=== PATIENT | female | born 1935 | race Caucasian/White ===

== ENCOUNTER 2020-10-15 09:29 | Inpatient (IN) | payer MEDICARE, OTHER ==
[~2020-10-15] VITALS: Ht 167.6 cm; Wt 73.0 kg
[~2020-10-15 09:29] MED LIST: CAL MAG ZINC +1 EACH PO; FLOMAX0.4 MG PO; FOLBIC TABLET1 EACH PO; FUROSEMIDE20 MG PO; INFLECTRA100 MG IV; METHOTREXATE2.5 MG PO; METOPROLOL TART50 MG PO; OMEPRAZOLE20 MG PO; PERCOCET 5-3251 EACH PO; POTASSIUM CHLO10 MEQ PO; PROPRANOLOL HCL20 MG PO; PYRIDIUM200 MG PO
[2020-10-15] MEDS ORDERED: SULFASALAZINE500 MG PO (14:23)
[2020-10-15] MEDS ORDERED: AMLODIPINE BESYL5 MG PO (14:25)
[2020-10-15] MEDS ORDERED: CHLORTHALIDONE25 MG PO (14:27)
[2020-10-15] MEDS ORDERED: POTASSIUM CHLO20 ME1 PO (14:27)
[2020-10-15] MEDS ORDERED: CARBIDOPA-LEVO1 EACH PO (14:27)
--- NOTE | 2020-10-15 14:50 | NUR ---
PT ARRIVED FROM ER VIA STRETCHER. PT ALERT AND ORIENTED X4. PT ABLE TO WALK FROM STRETCHER TO RESTROOM AND THEN BACK TO BED WITH ASSISTANCE OF HER CANE THAT SHE USES AT BASELINE. PT DENIES ANY SHORTNESS OF BREATH AT REST AND DOESN'T APPEAR TO HAVE ANY EXERTIONAL SHORTNESS OF BREATH, PT APPEARS TO WEAK BUT STEADY ON HER FEET. PT EATING PART OF LUNCH AND IS FEELING NO NAUSEA AT THIS TIME
[2020-10-15] MEDS ORDERED: NITROSTAT0.4 MG SL (15:23)
[2020-10-15] MEDS ORDERED: FOLIC ACID1 MG PO (15:23)
[2020-10-15] MEDS ORDERED: PROLIA60 MG/1 ML SUB-Q (15:24)
--- NOTE | 2020-10-15 16:15 | NUR ---
THIS RN IN PTS ROOM TO GIVE PT THE REST OF HER MEDS. PT REQUESTING TO HAVE HER IV MOVED TO HER RIGHT ARM INSTEAD OF HER LEFT AC DUE TO THAT BEING HER DOMINANT ARM AND THAT IT INCLUDES. THIS RN STATED THAT SHE WILL TRY AFTER SHE CHECKS ON ALL HER OTHER PTS FIRST
--- NOTE | 2020-10-15 17:00 | NUR ---
THIS RN BACK IN PTS ROOM TO ATTEMPT NEW IV. THIS RN ATTEMPTED TWICE ON PTS RIGHT FOREARM AND MISSED BOTH TIMES. PT THANKED THIS RN FOR ATTEMPTING
--- NOTE | 2020-10-15 17:55 | EKG ---
[facility] [address] [facility] [place], [place] [address] Signed Normal sinus rhythm with sinus arrhythmia Voltage criteria for left ventricular hypertrophy Inferior infarct , age undetermined Abnormal ECG No previous ECGs available Confirmed by MOLLY SALMON MD ([id number]) on 10/15/2020 5:55:09 PM Electronically Signed By: MOLLY SALMON MD 10/15/20 1755 PATIENT NAME: YAAKOV LOGAN Electrocardiogram DATE OF : 35 PHYSICIAN: MOLLY SALMON MD REPORT #: [id number] REPORT IS CONFIDENTIAL AND NOT TO BE RELEASED WITHOUT AUTHORIZATION
--- NOTE | 2020-10-15 19:44 | NUR ---
PATIENT RESTING QUIETLY IN BED IN ROOM, CALL LIGHT IN REACH.
--- NOTE | 2020-10-15 20:33 | NUR ---
PATIENT HAS HER SELF IN BED AND IS FEELING NO SHORTNESS OF BREATH, JUST USED THE BATHROOM INDEPENDANTLY WITH THE CAN. PATIENT TOOK PM MEDS AND HAD NO OTHER NEEDS. CALL LIGHT IN REACH AND BED POSITIONED TO POSITION OF COMFORT. CALL LIGHT IS IN REACH.
--- NOTE | 2020-10-15 22:30 | NUR ---
PATIENT RESTING QUIETLY IN HER RIGHT SIDE, MOVING AROUND A BIT. NO NEEDS AT THIS TIME. CALL LIGHT IN REACH.
--- NOTE | 2020-10-15 23:20 | NUR ---
PATIENT CONTINUES RESTING ON HER LEFT SIDE, RESPIRATIONS ARE REGULAR AND EVEN, EYES CLOSED AND CALL LIGHT IN REACH.
--- NOTE | 2020-10-16 01:30 | NUR ---
PATIENT IS CURRENTLY AWAKE AND READJUSTING HERSELF IN BED. PATIENT SAYS SHE IS DOING OK, AND NEEDS NOTHING AT THIS TIME CALL LIGHT IS IN REACH.
--- NOTE | 2020-10-16 03:23 | NUR ---
PATIENT UP TO THE BATHROOM INDEPENDANT WITH CANE TO VOID AND BACK TO BED. VOIDED 850MLS. TWO WARM BLANKETS GIVEN, VS STABLE, PATIENT GOING TO TRY AND GO TO BACK TO SLEEP. CALL LIGHT IN REACH.
--- NOTE | 2020-10-16 07:00 | NUR ---
THIS RN RECEIVED REPORT FROM HUMPHREY GRIFFITH IN THE HALLWAY TO PTS ISOLATION STATUS. PT APPEARS TO BE DOING WELL. PT ON TELE AND ON CPOX
--- NOTE | 2020-10-16 10:00 | NUR ---
THIS RN FLUSHED PTS 20G IV IN THE LEFT AC. IV FLUSHED WELL WITH NO PROBLEMS, NO BLOOD RETURN NOTED
--- NOTE | 2020-10-16 10:01 | NUR ---
THIS RN IN PTS ROOM TO GIVE PT HER MORNING MEDS AND DO MORNING ASSESSMENT. PT SITTING UP TO CHAIR AND HAS NO COMPLAINTS THIS AM. PT AMBULATED TO RESTROOM AND IS STEADY ON HER FEET. PT ON TELE AND CPOX.
--- NOTE | 2020-10-16 10:30 | NUR ---
THIS RN BACK IN ROOM DUE TO PT WAVING AT THIS RN ABOUT HER IV. WHEN THIS RN ENTERED ROOM THIS RN NOTICED THAT PT HAD A GOLF BALL SIZE INFILTRATED SITE HER LEFT AC IV SITE. THIS RN STOPPED THE INFUSION AND REMOVED THE IV AND PLACED A PRESURE DRESSING AT THE SITE. THIS RN THEN NOTIFED CHARGE NURSE BARBRA AND ABOUT THE INCIDENT
--- NOTE | 2020-10-16 12:45 | NUR ---
THIS RN IN PTS ROOM TO ATTEMPT ANOTHER IV. THIS RN UNABLE AFTER TWO ATTEMPTS ONE ON THE RIGHT FOREARM AND ONE ON THE LEFT FOREARM. PTS LEFT IV SITE IN HER AC APPEARS TO HAVE GONE DOWN IN THE SWELLING AND NO REDNESS NOTED AT THE SITE
--- NOTE | 2020-10-16 15:30 | NUR ---
THIS RN IN PTS ROOM TO GIVE HER THE AFTERNOON MEDS. THIS RN ALSO ABLE TO RESTART PTS REMDESIVIR AT THIS TIME. PT VERY HAPPY ABOUT HER NEW IV.THIS RN FLUSHED PTS IV WITH 10ML OF NS, IV FLUSHED WELL AND GOOD BLOOD RETURN PRESENT AT THIS TIME
--- NOTE | 2020-10-16 16:00 | NUR ---
THIS RN BACK IN PTS ROOM TO GIVE PT HER EVENING POTASSIUM PILLS AND STOP PTS REMDESIVIR. PT TOLERATED WELL AND LOOKS GOOD
--- NOTE | 2020-10-16 17:40 | NUR ---
THIS RN IN PTS ROOM TO PROVIDE PT WITH DINNER. THIS RN MADE SURE THAT PT WAS GETTING WARM FOOD DUE TO THE LAST TWO MEALS SHE RECIEVED WERE COLD. PT SITTING UP IN BED ANS HAS NO FURTHER REQUESTS AT THIS TIME
--- NOTE | 2020-10-16 18:18 | NUR ---
PATIENT SITTING UP IN BED TALKING ON THE PHONE. PATIENT SAID SHE HASN'T HAD WASHCLOTH SINCE SHE GOT HERE, GAVE HER A PILE TO KEEP BY HER SINK IN THE BATHROOM AND THIS MORNING MADE SURE SHE HAD AM CARE AND ORAL CARE SUPPLIES AVALIABLE AND SHE DID. CALL LIGHT IN REACH. NO FURTHER NEEDS AT THIS TIME.
--- NOTE | 2020-10-16 19:17 | NUR ---
PATIENT RESTING QUIETLY IN BED, GETTING REPORT FROM NACHO ADORNO, NO NEEDS AT THIS TIME. CALL LIGHT IN REACH.
--- NOTE | 2020-10-16 21:53 | NUR ---
PATIENT WAS GIVEN TO WARM BLANKETS EARLIER WITH FRESH GLASS OF ICE WATER WELL. PATIENT IS CURRETLY RESTING QUIETLY ON HER LEFT SIDE. EYES CLOSED, RESPIRATIONS REGULAR AND EVEN, CALL LIGHT IN REACH.
--- NOTE | 2020-10-17 00:32 | NUR ---
PATIENT RESTING QUIETLY ON HER RIGHT SIDE, EYES CLOSED, RESPIRATIONS REGULAR AND EVEN, AND CALL LIGHT IN REACH.
--- NOTE | 2020-10-17 02:03 | NUR ---
PATIENT JUST UP TO THE BATHROOM INDEPENDANTLY WITH HER CANE TO PEE, AND IS NOW BACK IN BED. NO CURRENT NEEDS, CALL LIGHT IS IN REACH.
--- NOTE | 2020-10-17 04:00 | NUR ---
PATIENT RESTING QUIETLY ON HER RIGHT SIDE, EYES CLOSED, RESPIRATIONS REGULAR AND EVEN, CALL LIGHT IN REACH.
--- NOTE | 2020-10-17 06:41 | NUR ---
PATIENT WAS ABLE TO SLEEP WELL MOST OF THE NIGHT WITH HER MELATONIN SHE WAS GIVEN. PATIENT HAS BEEN UP INDEPENDANT WITH HER CANE TO USE THE BATHROOM. IV IS PATENT AND FLUSHES AND DRAWS WELL. LABS DRAWN FOR AM, AND PATIENT GOING TO TRY AND GO BACK TO SLEEP. CALL LIGHT IN REACH.
--- NOTE | 2020-10-17 09:35 | NUR ---
Patient sitting up in bed. AM medications given as prescribed. Takes without difficulty. Denies pain this AM. States she is feeling better today. Assessment completed. Denies other needs at this time. Call light in reach, bed rails up X2.
--- NOTE | 2020-10-17 11:10 | NUR ---
Dr. Paul in to assess patient. Informed of IV site in ankle. Up in bathroom at this time.
[2020-10-17] MEDS ORDERED: POTASSIUM CHLO20 ME1 PO (12:15)
--- NOTE | 2020-10-17 13:28 | NUR ---
DC instructions given to patient. Verbalizes understanding. Denies needs at this time. Call light in reach.
== END 2020-10-17 13:55 | disposition home or self-care (01) | DRG 178 ==
LOC: ED 09:29 → MS 09:31
PROVIDERS: ADMIT Internal Medicine; ATTEND Internal Medicine
PROC: XW033E5 Introduction of Remdesivir Anti-infective into Peripheral Vein, Percutaneous Approach, New Technology Group 5 (ICD-10-PCS; principal; 2020-10-15)
PROC: XW033E5 Introduction of Remdesivir Anti-infective into Peripheral Vein, Percutaneous Approach, New Technology Group 5 (ICD-10-PCS; 2020-10-16)
PROC: XW033E5 Introduction of Remdesivir Anti-infective into Peripheral Vein, Percutaneous Approach, New Technology Group 5 (ICD-10-PCS; 2020-10-17)
DX: U07.1 COVID-19 (principal); A08.39 Other viral enteritis; N17.9 Acute kidney failure, unspecified; N18.4 Chronic kidney disease, stage 4 (severe); M06.9 Rheumatoid arthritis, unspecified; E87.6 Hypokalemia; I12.9 Hypertensive chronic kidney disease with stage 1 through stage 4 chronic kidney disease, or unspecified chronic kidney disease; N30.20 Other chronic cystitis without hematuria; K21.00 Gastro-esophageal reflux disease with esophagitis, without bleeding; M19.90 Unspecified osteoarthritis, unspecified site; M54.16 Radiculopathy, lumbar region; M81.0 Age-related osteoporosis without current pathological fracture; G44.209 Tension-type headache, unspecified, not intractable; Z79.899 Other long term (current) drug therapy; Z88.1 Allergy status to other antibiotic agents; Z87.891 Personal history of nicotine dependence
CPT/HCPCS: 36600; 71045; 80048; 80053; 82803; 83605; 83615; 83735; 83880; 84484; 85025; 85379; 93005; 93010; 96374; 99285-25; J1100; J1650; J7040; J7050; J8540

== ENCOUNTER 2023-09-13 09:56 | Emergency (ER) | payer MEDICARE, OTHER ==
[~2023-09-13] VITALS: Ht 307.3 cm; Wt 58.7 kg
[~2023-09-13 09:56] MED LIST changes: +AMLODIPINE BESYL5 MG PO; +CARBIDOPA-LEVO1 EACH PO; +CHLORTHALIDONE25 MG PO; +FOLIC ACID1 MG PO; +NITROSTAT0.4 MG SL; +POTASSIUM CHLO20 ME1 PO; +PROLIA60 MG/1 ML SUB-Q; +SULFASALAZINE500 MG PO
[2023-09-13 11:21] LABS: BASOPHILS 0.6 % (0-2); EOSINOPHILS 2.8 % (0-6); HEMATOCRIT 21.6 % (35.0-50.0); LYMPHOCYTES 15.4 % (24-44); MCH 32.5 (27-36); MCHC 32.1 g/dl (30-36); MCV 101.1 fl (81-99); MONOCYTES 12.8 % (0-12); NEUTROPHILS 68.4 % (39-80); PLATELET COUNT 250 K/uL (140-440); RBC 2.14 M/ul (4.3-5.7); RDW 16.2 (10.5-15.0)
[2023-09-13 11:36] LABS: ALBUMIN 2.9 g/dL (3.4-5.0); ALBUMIN/GLOBULIN RATIO 0.69 (1.1-2.4); BILIRUBIN, TOTAL 0.2 ng/dL (0.2-1.0); BUN/CREATININE RATIO 12.66 (6.0-28.6); CALCIUM 8.6 mg/dL (8.5-10.1); CREATININE, SERUM 3.87 mg/dL (0.55-1.02); PROTEIN, TOTAL 7.1 g/dL (6.4-8.2)
[2023-09-13 11:57] LABS: ABO A; ANTIBODY SCREEN NEGATIVE; RH NEGATIVE
[2023-09-13 12:32] VITALS: BP 185/93
[2023-09-13 13:28] LABS: IS CROSSMATCH COMPATIBLE
== END 2023-09-13 12:33 | disposition home or self-care (01) ==
LOC: ED 09:56
PROVIDERS: Emergency Medicine
DX: I12.9 Hypertensive chronic kidney disease with stage 1 through stage 4 chronic kidney disease, or unspecified chronic kidney disease (principal); N18.9 Chronic kidney disease, unspecified; D63.1 Anemia in chronic kidney disease; Z88.1 Allergy status to other antibiotic agents; Z79.899 Other long term (current) drug therapy; Z87.891 Personal history of nicotine dependence
CPT/HCPCS: 36415; 80053; 85025; 86850; 86900; 86901; 86922; 99284; P9016

== ENCOUNTER 2024-07-27 18:48 | Emergency (ER) | payer MEDICARE, OTHER ==
[~2024-07-27] VITALS: Ht 152.4 cm; Wt 53.3 kg
[2024-07-27] MEDS ORDERED: NORVASC10 MG PO (19:10)
[2024-07-27] MEDS ORDERED: MIRTAZAPINE15 MG PO (19:11)
[2024-07-27] MEDS ORDERED: SULFASALAZINE500 MG PO (19:11)
[2024-07-27 19:38] LABS: BASOPHILS 0.5 % (0-2); EOSINOPHILS 0.8 % (0-6); HEMATOCRIT 23.9 % (35.0-50.0); HEMOGLOBIN 7.8 g/dL (12.0-18.0); LYMPHOCYTES 19.1 % (24-44); MCH 32.6 (27-36); MCHC 32.5 g/dl (30-36); MCV 100.3 fl (81-99); MONOCYTES 11.7 % (0-12); NEUTROPHILS 67.9 % (39-80); PLATELET COUNT 192 K/uL (140-440); RBC 2.38 M/ul (4.3-5.7); RDW 17.3 (10.5-15.0)
[2024-07-27 19:55] LABS: ALBUMIN 2.5 g/dL (3.4-5.0); ALBUMIN/GLOBULIN RATIO 0.56 (1.1-2.4); ANION GAP 20.2 (7-21); BILIRUBIN, TOTAL 0.4 ng/dL (0.2-1.0); BUN/CREATININE RATIO 10.96 (6.0-28.6); CALCIUM 8.5 mg/dL (8.5-10.1); CREATININE, SERUM 5.93 mg/dL (0.55-1.02); MAGNESIUM 1.9 mg/dL (1.8-2.4); PHOSPHORUS, INORGANIC 5.6 mg/dL (2.5-4.9); POTASSIUM 5.2 mmol/L (3.5-5.1)
[2024-07-27 20:23] LABS: INFLUENZA B NAA NEGATIVE (NEGATIVE); RESPIRATORY SYNCYTIAL VIR NAA NEGATIVE (NEGATIVE)
[2024-07-27 20:57] LABS: ABO A; ANTIBODY SCREEN NEGATIVE; RH NEGATIVE
[2024-07-27 21:50] LABS: BILIRUBIN, URINE NEGATIVE (negative); BLOOD/HGB, URINE TRACE-L (Negative); KETONE, URINE NEGATIVE (Negative); LEUK ESTERASE, URINE SMALL (negative); NITRITE, URINE NEGATIVE (negative)
[2024-07-27 22:03] LABS: WHITE BLOOD CELLS, URINE 41-50 /HPF (0-5)
[2024-07-27 22:04] LABS: BACTERIA, URINE 2+ /hpf (negative); CASTS, URINE NONE SEEN \\lpf; COLLECTION TYPE, URINE CLEAN CATCH; CRYSTALS, URINE NONE SEEN (0-1+); EPITHELIAL CELLS, URINE SQUAMOUS 1+ /lpf (0-1+); REFLEX CULTURE, URINE Yes (No)
[2024-07-27] MEDS ORDERED: hydrALAZINE HCL 20 MG/ML VIAL IV ONE (22:15)
[2024-07-27] MEDS ORDERED: SODIUM POLYSTYRENE SULFONATE 15 GM/60 ML UDC PO ONE (22:15)
[2024-07-27 22:46] LABS: IS CROSSMATCH COMPATIBLE
[2024-07-27] MEDS ORDERED: CEFTRIAXONE/SODIUM CHLORIDE 1 GM/100 ML PIGGYBACK IV ONE (23:45)
[2024-07-27] MEDS ORDERED: diphenhydrAMINE HCL 50 MG/ML VIAL IV ONE (23:45)
[2024-07-27] MEDS ORDERED: LORazepam 2 MG/ML VIAL IV ONE (23:45)
[2024-07-28 00:20] LABS: ANION GAP 20.1 (7-21); BUN/CREATININE RATIO 11.44 (6.0-28.6); CALCIUM 8.7 mg/dL (8.5-10.1); CREATININE, SERUM 5.94 mg/dL (0.55-1.02); POTASSIUM 4.1 mmol/L (3.5-5.1)
[2024-07-28] MEDS ORDERED: LORazepam 2 MG/ML VIAL IV ONE (01:00)
[2024-07-28] MEDS ORDERED: DEXAMETHASONE SOD PHOS 4 MG/ML VIAL IV ONE (01:00)
[2024-07-28] MEDS ORDERED: K-TAB ER20 MEQ PO (02:16)
[2024-07-28] MEDS ORDERED: CEFDINIR300 MG PO (03:47)
[2024-07-28 03:53] VITALS: BP 171/92
== END 2024-07-28 03:59 | disposition home or self-care (01) ==
LOC: ED 18:48
PROVIDERS: Family Medicine
DX: D64.9 Anemia, unspecified (principal); I12.0 Hypertensive chronic kidney disease with stage 5 chronic kidney disease or end stage renal disease; N18.5 Chronic kidney disease, stage 5; N39.0 Urinary tract infection, site not specified; Z87.891 Personal history of nicotine dependence; Z88.1 Allergy status to other antibiotic agents; Z79.899 Other long term (current) drug therapy; Z11.52 Encounter for screening for COVID-19
CPT/HCPCS: 36415; 36430; 80048; 80053; 81001; 83735; 84100; 85025; 86850; 86900; 86901; 86922; 87088; 87502; 96365; 96375; 99283-25; J0360; J0696; J1200; J2060; P9016; U0002

== ENCOUNTER 2024-09-08 15:08 | Inpatient (IN) | payer MEDICARE, OTHER ==
[~2024-09-08] VITALS: Ht 152.4 cm; Wt 58.1 kg
[~2024-09-08 15:08] MED LIST changes: +CEFDINIR300 MG PO; +K-TAB ER20 MEQ PO; +MIRTAZAPINE15 MG PO; +NORVASC10 MG PO
[2024-09-08 16:03] LABS: HEMATOCRIT 28.1 % (35.0-50.0); HEMOGLOBIN 8.9 g/dL (12.0-18.0); MCH 33.7 (27-36); MCHC 31.8 g/dl (30-36); MCV 105.8 fl (81-99); PLATELET COUNT 240 K/uL (140-440); RBC 2.66 M/ul (4.3-5.7); RDW 17.4 (10.5-15.0)
[2024-09-08 16:14] LABS: ALBUMIN 2.8 g/dL (3.4-5.0); ALBUMIN/GLOBULIN RATIO 0.6 (1.1-2.4); ANION GAP 24.4 (7-21); BILIRUBIN, TOTAL 0.6 ng/dL (0.2-1.0); BUN/CREATININE RATIO 12.21 (6.0-28.6); CALCIUM 7.4 mg/dL (8.5-10.1); CREATININE, SERUM 5.73 mg/dL (0.55-1.02); POTASSIUM 4.4 mmol/L (3.5-5.1); PROTEIN, TOTAL 7.5 g/dL (6.4-8.2)
[2024-09-08 16:20] LABS: BASOPHILS, MANUAL DIFF 1; LYMPHOCYTES, MANUAL DIFF 6; MONOCYTES, MANUAL DIFF 7; NEUTROPHILS, MANUAL DIFF 86
[2024-09-08 16:31] LABS: BILIRUBIN, URINE NEGATIVE (negative); BLOOD/HGB, URINE TRACE-I (Negative); KETONE, URINE NEGATIVE (Negative); LEUK ESTERASE, URINE NEGATIVE (negative); NITRITE, URINE NEGATIVE (negative)
[2024-09-08 16:40] LABS: BACTERIA, URINE NONE SEEN /hpf (negative); CASTS, URINE NEGATIVE \\lpf; COLLECTION TYPE, URINE CLEAN CATCH; CRYSTALS, URINE NONE SEEN (0-1+); EPITHELIAL CELLS, URINE SQUAMOUS 1+ /lpf (0-1+); REFLEX CULTURE, URINE No (No)
[2024-09-08] MEDS ORDERED: SODIUM CHLORIDE 0.9% 1,000 ML IV PRN (17:00)
[2024-09-08 17:21] LABS: MAGNESIUM 1.9 mg/dL (1.8-2.4)
[2024-09-08 17:49] LABS: INFLUENZA B NAA NEGATIVE (NEGATIVE); RESPIRATORY SYNCYTIAL VIR NAA NEGATIVE (NEGATIVE)
[2024-09-08] MEDS ORDERED: ACETAMINOPHEN 325 MG TAB PO PRN (19:30)
[2024-09-08] MEDS ORDERED: ondansetron HCL 4 MG/2 ML VIAL IV PRN (19:30)
[2024-09-08] MEDS ORDERED: GLUCAGON,HUMAN RECOMBINANT 1 MG/ML VIAL SUB-Q PRN (19:30)
[2024-09-08] MEDS ORDERED: DEXTROSE 5% 1,000 ML IV PRN (19:30)
[2024-09-08] MEDS ORDERED: DEXTROSE 50% 50 ML SYR IV PRN ×2 (19:30)
[2024-09-08] MEDS ORDERED: IBLOOD GLUCOSE TEST STRIP 1 EA TEST XX PRN (19:30)
[2024-09-08] MEDS ORDERED: bisacodyL 10 MG SUPP PR PRN (19:30)
[2024-09-08] MEDS ORDERED: PROCHLORPERAZINE EDISYLATE 10 MG/2 ML VIAL IV PRN (19:30)
[2024-09-08] MEDS ORDERED: Insulin Regular, Human 100 UNIT/ML ML SUB-Q SCH (20:00)
[2024-09-08] MEDS ORDERED: IBLOOD GLUCOSE TEST STRIP 1 EA TEST VI SCH (20:00)
[2024-09-08] MEDS ORDERED: LABETALOL HCL 100 MG/20 ML MDV IV PRN (20:00)
[2024-09-08] MEDS ORDERED: MELATONIN 3 MG TAB PO PRN (21:00)
[2024-09-08 21:09] VITALS: BP 171/91
[2024-09-08] MEDS ORDERED: METOPROLOL TART25 MG PO (22:33)
[2024-09-08] MEDS ORDERED: FUROSEMIDE80 MG PO (22:34)
[2024-09-08] MEDS ORDERED: FLONASE SENSIM5.9 ML NAS (22:35)
[2024-09-08] MEDS ORDERED: VITAMIN B12500 MCG PO (22:36)
[2024-09-08] MEDS ORDERED: SODIUM BICARBO650 MG PO (22:37)
[2024-09-08] MEDS ORDERED: CALPHRON667 MG PO (22:39)
[2024-09-08] MEDS ORDERED: REMDESIVIR 200 MG in SODIUM CHLORIDE 0.9% 210 ML IV ONE (23:00)
[2024-09-08] MEDS ORDERED: SODIUM CHLORIDE 0.9% 250 ML IV ONE (23:19)
[2024-09-09] VITALS (11 sets, daily range): BP systolic 148–196; BP diastolic 68–93
[2024-09-09 05:46] LABS: HEMATOCRIT 27.3 % (35.0-50.0); HEMOGLOBIN 8.6 g/dL (12.0-18.0); MCH 33.4 (27-36); MCHC 31.6 g/dl (30-36); MCV 105.6 fl (81-99); PLATELET COUNT 219 K/uL (140-440); RBC 2.59 M/ul (4.3-5.7); RDW 17.2 (10.5-15.0)
[2024-09-09 05:58] LABS: LYMPHOCYTES, MANUAL DIFF 9; MONOCYTES, MANUAL DIFF 4; NEUTROPHILS, MANUAL DIFF 87
[2024-09-09 06:16] LABS: ANION GAP 25.4 (7-21); BUN/CREATININE RATIO 12.63 (6.0-28.6); CALCIUM 7.8 mg/dL (8.5-10.1); CREATININE, SERUM 5.7 mg/dL (0.55-1.02); POTASSIUM 3.4 mmol/L (3.5-5.1); TSH, 3RD GENERATION 5.722 uIU/mL (0.358-3.740)
[2024-09-09] MEDS ORDERED: POTASSIUM BICARBONATE/CIT AC 20 MEQ TABEF PO ONE (08:15)
[2024-09-09] MEDS ORDERED: sulfaSALAzine 500 MG TAB PO SCH (09:00)
[2024-09-09] MEDS ORDERED: FLUTICASONE PRO16 GM NAS (09:33)
[2024-09-09] MEDS ORDERED: POTASSIUM CITR15 MEQ PO (09:35)
[2024-09-09] MEDS ORDERED: PHARMACY RENAL DOSE ADJUSTMENT 1 DOSE MISC PO SCH (12:00)
[2024-09-09] MEDS ORDERED: BENZONATATE 100 MG CAP PO PRN (13:00)
[2024-09-09] MEDS ORDERED: GUAIFENESIN/DEXTROMETHORPHAN 5 ML SYRUP PO PRN (13:00)
[2024-09-09] MEDS ORDERED: VITAMIN D350 MCG PO (14:01)
[2024-09-09] MEDS ORDERED: TUMS200 MG PO (14:16)
[2024-09-09] MEDS ORDERED: ASPIRIN REGIMEN81 MG PO (14:17)
[2024-09-09] MEDS ORDERED: ARTHRITIS PAIN650 M2 PO (14:36)
[2024-09-09] MEDS ORDERED: MILK OF MA400 MG/5 M PO (14:37)
[2024-09-09] MEDS ORDERED: LOPERAMIDE2 M1 PO (14:38)
[2024-09-09] MEDS ORDERED: AMLODIPINE BESYLATE 10 MG TAB PO SCH (15:15)
[2024-09-09] MEDS ORDERED: LABETALOL HCL 100 MG/20 ML MDV IV PRN (15:30)
[2024-09-09] MEDS ORDERED: METOPROLOL TARTRATE 25 MG TAB PO SCH (21:00)
[2024-09-10] VITALS (10 sets, daily range): BP systolic 156–188; BP diastolic 75–87
[2024-09-10 05:28] LABS: FOLATE,SERUM 3.7 ng/mL (>=5.9)
[2024-09-10 05:55] LABS: HEMATOCRIT 26.3 % (35.0-50.0); HEMOGLOBIN 8.3 g/dL (12.0-18.0); MCH 33.3 (27-36); MCHC 31.4 g/dl (30-36); MCV 105.9 fl (81-99); PLATELET COUNT 206 K/uL (140-440); RBC 2.49 M/ul (4.3-5.7); RDW 18.3 (10.5-15.0)
[2024-09-10] MEDS ORDERED: FUROSEMIDE 40 MG TAB PO SCH (06:00)
[2024-09-10 06:13] LABS: ALBUMIN 2.2 g/dL (3.4-5.0); ALBUMIN/GLOBULIN RATIO 0.5 (1.1-2.4); ANION GAP 23.9 (7-21); BILIRUBIN, TOTAL 0.5 ng/dL (0.2-1.0); BUN/CREATININE RATIO 13.66 (6.0-28.6); CALCIUM 8.1 mg/dL (8.5-10.1); MAGNESIUM 2.1 mg/dL (1.8-2.4); POTASSIUM 3.9 mmol/L (3.5-5.1); PROTEIN, TOTAL 6.6 g/dL (6.4-8.2)
[2024-09-10 06:16] LABS: EOSINOPHILS, MANUAL DIFF 1; LYMPHOCYTES, MANUAL DIFF 7; MONOCYTES, MANUAL DIFF 11; NEUTROPHILS, MANUAL DIFF 81
[2024-09-10] MEDS ORDERED: LEVOTHYROXINE SODIUM 50 MCG TAB PO SCH (07:00)
[2024-09-10] MEDS ORDERED: FOLIC ACID 1 MG TAB PO SCH (08:26)
[2024-09-11 02:00] VITALS: BP 172/84
[2024-09-11 02:01] VITALS: BP 174/79
[2024-09-11 02:02] VITALS: BP 174/79
[2024-09-11 05:21] VITALS: BP 177/78
[2024-09-11 08:52] VITALS: BP 139/59
[2024-09-11 08:53] VITALS: BP 139/59
[2024-09-11] MEDS ORDERED: METOPROLOL TARTRATE 50 MG TAB PO SCH (09:00)
--- NOTE | 2024-09-11 21:31 | EKG ---
[facility] [address] [facility] [address] [facility] [place] [address] Signed Normal sinus rhythm Nonspecific ST and T wave abnormality Prolonged QT Abnormal ECG When compared with ECG of 15-OCT-2020 11:28, Criteria for Inferior infarct are no longer present Nonspecific T wave abnormality has replaced inverted T waves in Inferior leads Nonspecific T wave abnormality now evident in Lateral leads Confirmed by Alysa Diop MD ([id number]) on 09/11/2024 9:31:36 PM Electronically Signed By: ALYSA DIOP DO 09/11/[id number] PATIENT NAME: YAAKOV LOGAN Electrocardiogram DATE OF : 35 PHYSICIAN: ALYSA DIOP DO REPORT #: [id number] REPORT IS CONFIDENTIAL AND NOT TO BE RELEASED WITHOUT AUTHORIZATION
[2024-09-12 00:18] LABS: IRON BINDING CAPACITY TOTAL 138 ug/dL (240-450); IRON,SERUM OR PLASMA 37 ug/dL (28-170); TRANSFERRIN SATURATION 27 %sat (20-50)
== END 2024-09-11 13:45 | DRG 177 ==
LOC: ED 15:08 → MS 19:43
PROVIDERS: Emergency Medicine; ADMIT Student in an Organized Health Care Education/Training Program; ATTEND Student in an Organized Health Care Education/Training Program
PROC: XW033E5 Introduction of Remdesivir Anti-infective into Peripheral Vein, Percutaneous Approach, New Technology Group 5 (ICD-10-PCS; principal; 2024-09-08)
DX: U07.1 COVID-19 (principal); N18.6 End stage renal disease; I67.4 Hypertensive encephalopathy; I12.0 Hypertensive chronic kidney disease with stage 5 chronic kidney disease or end stage renal disease; Z87.891 Personal history of nicotine dependence; M06.9 Rheumatoid arthritis, unspecified; F03.A0 Unspecified dementia, mild, without behavioral disturbance, psychotic disturbance, mood disturbance, and anxiety; Z66 Do not resuscitate; I35.0 Nonrheumatic aortic (valve) stenosis; E78.00 Pure hypercholesterolemia, unspecified; M19.90 Unspecified osteoarthritis, unspecified site; D63.1 Anemia in chronic kidney disease; Z88.1 Allergy status to other antibiotic agents; Z87.442 Personal history of urinary calculi; Z98.890 Other specified postprocedural states; Z90.89 Acquired absence of other organs; Z98.1 Arthrodesis status; Z79.899 Other long term (current) drug therapy
CPT/HCPCS: 36415; 70450; 70551; 71045; 73120; 80048; 80053; 80061; 81001; 82607; 82746; 83036; 83550; 83735; 83880; 84439; 84443; 84484; 85025; 87502; 92610; 93005; 93010; 93306; 94667; 94762; 97112; 97162; 97166; 97530; 97535; A9270; J0248; J7050; U0002

== ENCOUNTER 2024-10-20 09:35 | Inpatient (IN) | payer MEDICARE, OTHER ==
[~2024-10-20] VITALS: Ht 152.4 cm; Wt 68.8 kg
[~2024-10-20 09:35] MED LIST changes: +ARTHRITIS PAIN650 M2 PO; +ASPIRIN REGIMEN81 MG PO; +CALPHRON667 MG PO; +FLONASE SENSIM5.9 ML NAS; +FLUTICASONE PRO16 GM NAS; +FUROSEMIDE80 MG PO; +LOPERAMIDE2 M1 PO; +METOPROLOL TART25 MG PO; +MILK OF MA400 MG/5 M PO; +POTASSIUM CITR15 MEQ PO; +SODIUM BICARBO650 MG PO; +TUMS200 MG PO; +VITAMIN B12500 MCG PO; +VITAMIN D350 MCG PO
--- OUTSIDE RECORDS SUMMARY | 2024-10-20 09:43 | XMS ---
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 [place] VISIT COUNT (12 MO.) [address] Afshan Thompson (Chidi Murillo) TOTAL 5 NOTE: Visits indicate total known visits. ED/UCC VISIT TRACKING (12 MO.) 10/20/2024 09:35 [facility] [place] TYPE: Emergency COMPLAINT: - SHORTNESS OF BREATH 09/25/2024 10:09 [facility] Chidi [place]A ([place]) TYPE: Emergency DIAGNOSES: - Dysarthria and anarthria - Encephalopathy, unspecified - Other disorders of phosphorus metabolism - Urinary tract infection, site not specified - Weakness 09/24/2024 18:01 [facility] Chidi [place] ([place]) TYPE: Emergency DIAGNOSES: - Hematuria, unspecified - Other disorders of phosphorus metabolism - Urinary tract infection, site not specified - Abnormal Lab 09/08/2024 15:08 [facility] TYPE: Emergency COMPLAINT: - ALTERED LOC 07/27/2024 18:49 [facility] [place] TYPE: Emergency COMPLAINT: - WEAKNESS DIAGNOSES: - Allergy status to other antibiotic agents - Anemia, unspecified - Chronic kidney disease, stage 5 - Encounter for screening for COVID-19 - Hypertensive chronic kidney disease with stage 5 chronic kidney disease or end stage renal disease - Other intermediate project manager (current) drug therapy - Personal history of nicotine dependence - Urinary tract infection, site not specified - Weakness INPATIENT VISIT TRACKING (12 MO.) 09/25/2024 10:09 [facility] Donna [place] (Chidi Murillo) TYPE: Medical Surgical DIAGNOSES: - Anemia in chronic kidney disease - Chronic kidney disease, stage 5 - Dysarthria and anarthria - Encephalopathy, unspecified - Enterococcus as the cause of diseases classified elsewhere - Hypertensive chronic kidney disease with stage 5 chronic kidney disease or end stage renal disease - Other disorders of phosphorus metabolism - Urinary tract infection, site not specified 09/08/2024 19:[address] [facility] [place] TYPE: Medical Surgical COMPLAINT: - CVA DIAGNOSES: - Acquired absence of other organs - Acquired absence of other organs - Acquired absence of other organs - Allergy status to other antibiotic agents - Allergy status to other antibiotic agents - Allergy status to other antibiotic agents - Anemia in chronic kidney disease - Anemia in chronic kidney disease - Anemia in chronic kidney disease - Arthrodesis status - Arthrodesis status - Arthrodesis status - COVID-19 - COVID-19 - Do not resuscitate - Do not resuscitate - Do not resuscitate - End stage renal disease - End stage renal disease - End stage renal disease - Hypertensive chronic kidney disease with stage 5 chronic kidney disease or end stage renal disease - Hypertensive chronic kidney disease with stage 5 chronic kidney disease or end stage renal disease - Hypertensive chronic kidney disease with stage 5 chronic kidney disease or end stage renal disease - Hypertensive encephalopathy - Hypertensive encephalopathy - Hypertensive encephalopathy - Nonrheumatic aortic (valve) stenosis - Nonrheumatic aortic (valve) stenosis - Nonrheumatic aortic (valve) stenosis - Other detention (current) drug therapy - Other intermediate project manager (current) drug therapy - Other detention (current) drug therapy - Other specified postprocedural states - Other specified postprocedural states - Other specified postprocedural states - Personal history of nicotine dependence - Personal history of nicotine dependence - Personal history of nicotine dependence - Personal history of urinary calculi - Personal history of urinary calculi - Personal history of urinary calculi - Pure hypercholesterolemia, unspecified - Pure hypercholesterolemia, unspecified - Pure hypercholesterolemia, unspecified - Rheumatoid arthritis, unspecified - Rheumatoid arthritis, unspecified - Rheumatoid arthritis, unspecified - Unspecified dementia, mild, without behavioral disturbance, psychotic disturbance, mood disturbance, and anxiety - Unspecified dementia, mild, without behavioral disturbance, psychotic disturbance, mood disturbance, and anxiety - Unspecified dementia, mild, without behavioral disturbance, psychotic disturbance, mood disturbance, and anxiety - Unspecified osteoarthritis, unspecified site - Unspecified osteoarthritis, unspecified site - Unspecified osteoarthritis, unspecified site [email or web address]
[2024-10-20] MEDS ORDERED: ALBUTEROL/IPRATROPIUM 3 ML NEB INH PRN (09:45)
[2024-10-20 10:16] LABS: BASOPHILS 0.5 % (0-2); EOSINOPHILS 0.2 % (0-6); HEMATOCRIT 14.9 % (35.0-50.0); LYMPHOCYTES 9.8 % (24-44); MCH 32.4 (27-36); MCHC 29.9 g/dl (30-36); MCV 108.4 fl (81-99); MONOCYTES 7.5 % (0-12); PLATELET COUNT 246 K/uL (140-440); RBC 1.37 M/ul (4.3-5.7); RDW 19.7 (10.5-15.0)
[2024-10-20 10:19] LABS: HEMOGLOBIN 4.4 g/dL (12.0-18.0)
[2024-10-20] MEDS ORDERED: CEPHALEXIN125 MG/5 M PO (10:33)
[2024-10-20] MEDS ORDERED: ISOSORBIDE MONO30 MG PO (10:33)
[2024-10-20] MEDS ORDERED: LEVOTHYROXINE50 MCG PO (10:34)
[2024-10-20] MEDS ORDERED: ATORVASTATIN CA20 MG PO (10:35)
[2024-10-20] MEDS ORDERED: LABETALOL HCL100 MG PO (10:36)
[2024-10-20] MEDS ORDERED: BUMETANIDE2 MG PO (10:37)
[2024-10-20] MEDS ORDERED: NIFEDIPINE ER30 M1 PO (10:38)
[2024-10-20 10:42] LABS: ALBUMIN/GLOBULIN RATIO 0.61 (1.1-2.4); ALKALINE PHOSPHATASE 82 U/L (46-116); ALT (SGPT) 7 U/L (14-59); ANION GAP 25.2 (7-21); AST (SGOT) 17 U/L (15-37); BILIRUBIN, TOTAL 0.4 ng/dL (0.2-1.0); BUN/CREATININE RATIO 20.27 (6.0-28.6); CARBON DIOXIDE 13 mmol/L (21-32); CHLORIDE 104 mmol/L (98-107); CREATININE, SERUM 5.82 mg/dL (0.55-1.02); GLOMERULAR FILTRATION RATE,EST 7 mL/min (>60); MAGNESIUM 1.8 mg/dL (1.8-2.4); POTASSIUM 5.2 mmol/L (3.5-5.1); PROTEIN, TOTAL 5.3 g/dL (6.4-8.2); UREA NITROGEN 118 mg/dL (7-18)
[2024-10-20 11:20] LABS: ABO A; ANTIBODY SCREEN NEGATIVE; IS CROSSMATCH COMPATIBLE; RH NEGATIVE
[2024-10-20] MEDS ORDERED: LIDOCAINE 2% VISCOUS 6 ML SYR TOP ONE (11:45)
[2024-10-20] MEDS ORDERED: FUROSEMIDE 100 MG/10 ML VIAL IV ONE (13:00)
[2024-10-20] MEDS ORDERED: FUROSEMIDE 100 MG/10 ML VIAL ONE (13:11)
[2024-10-20] MEDS ORDERED: ondansetron HCL 4 MG/2 ML VIAL IV PRN (15:15)
[2024-10-20] MEDS ORDERED: PANTOPRAZOLE SODIUM 40 MG/10 ML VIAL IV SCH ×2 (15:16→21:05)
[2024-10-20 17:04] VITALS: BP 198/65
[2024-10-20 18:00] VITALS: BP 165/20
[2024-10-20 18:30] VITALS: BP 165/20
--- NOTE | 2024-10-20 18:30 | NUR ---
BLOOD TRANSFUSION COMPLETE. VSS. PT IS RESTING COMFORTABLY IN BED, DENIES ANY DISCOMFORT. CALL LIGHT IN REACH. FAMILY AT BEDSIDE.
--- NOTE | 2024-10-20 18:40 | NUR ---
Patient refused dinner. Family in room.
[2024-10-20 20:11] LABS: HEMATOCRIT 26.7 % (35.0-50.0); HEMOGLOBIN 8.5 g/dL (12.0-18.0); MCH 31.6 (27-36); MCHC 31.9 g/dl (30-36); MCV 98.9 fl (81-99); PLATELET COUNT 182 K/uL (140-440); RDW 18.9 (10.5-15.0)
[2024-10-20 20:27] LABS: BANDS, MANUAL DIFF 1; LYMPHOCYTES, MANUAL DIFF 12; MONOCYTES, MANUAL DIFF 2; NEUTROPHILS, MANUAL DIFF 85
[2024-10-20 20:59] VITALS: BP 167/60
[2024-10-20 21:00] VITALS: BP 167/60
--- NOTE | 2024-10-20 21:07 | NUR ---
ALERT AND ORIENTED, ON 2LNC, NOT CHRONIC. LUNGS WITH CRACKLES, NO COUGH, UNKNOWN LBM PER PT. ABD SOFT, ROBERTO, PURE WICK IN PLACE, DRAINING CLEAR YELLOW URINE. PERICARE DONE, ATTENDS IN PLACE, 2 SL PATENT. R HAND EDEMA PRESENT. EDEMA 1+ HIPS TO TOES, BRUISED AREAS PRESENT. HOB ELEVATED, TOOK SIPS OF FLUIDS WELL, NO S/SX ASPIRATION, TELE#[address], SR, DENIES CP.CLEAR SPEECH AT THIS TIME
--- NOTE | 2024-10-20 22:02 | NUR ---
DR JACOBS ORDERED SCDS FOR PT, ORDER PLACED ON HOLD PER NURSING JUDGEMENT, DUE TO PTS REDDENED AREA WITH BLISTER, WILL REVIEW/DISCUSS WITH DR IN AM. LE ELEVATED WITH PILLOWS, BLISTERS L HEEAL, RED BLISTERY AREAS L LOWER CALF OUER AND INNER AREA AND R INNER LOER CALF, NOT OPEN, WHITISH CENTER SOFT,
[2024-10-21] VITALS (11 sets, daily range): BP systolic 103–153; BP diastolic 57–79
--- NOTE | 2024-10-21 00:44 | NUR ---
Eyes closed, resting, O2 2LNC, no s/sx distress. hob elevated to [employer], tele#[address] SR, LE elevated
--- NOTE | 2024-10-21 02:23 | NUR ---
TOOK O2 OFF, REPLACED, BACK ON O2 2LNC. NO SOB NOTED WITH REPOSITIONING. O2 NOT CHRONIC. LUNGS DIM AT BASES, NO COUGH NOTED , HOB ELEVATED TO HER COMFORT. PURE WICK IN PLACE, DRAINING YELLOW COLORED URINE. 2SL PATENT. COOPERATIVE WITH VITALS AND ASSESSMENT. CONTRACTURES OF HANDS, EDEMA TO R HAND, ELEVATED IN PILLOWS, BRUISING HEALING. LE EDEMA NO CHANGES, RED AREAS/BLISTERS BILAT LE AND L HEEL NO CHANGES, ELEVATED IN PILLOWS, REPOSITIONED. TELE#[address] DENIES C/O CP OR SOB WITH TURNING /REPOSITIONING
[2024-10-21 05:51] LABS: BASOPHILS 0.4 % (0-2); EOSINOPHILS 0.2 % (0-6); HEMATOCRIT 24.1 % (35.0-50.0); HEMOGLOBIN 7.8 g/dL (12.0-18.0); LYMPHOCYTES 9.1 % (24-44); MCH 31.4 (27-36); MCHC 32.1 g/dl (30-36); MCV 97.7 fl (81-99); MONOCYTES 9.4 % (0-12); NEUTROPHILS 80.9 % (39-80); PLATELET COUNT 228 K/uL (140-440); RBC 2.47 M/ul (4.3-5.7); RDW 18.8 (10.5-15.0)
[2024-10-21 06:07] LABS: ALBUMIN 2.1 g/dL (3.4-5.0); ALBUMIN/GLOBULIN RATIO 0.62 (1.1-2.4); ANION GAP 23.2 (7-21); BILIRUBIN, TOTAL 0.5 ng/dL (0.2-1.0); BUN/CREATININE RATIO 21.01 (6.0-28.6); CALCIUM 7.8 mg/dL (8.5-10.1); CREATININE, SERUM 6.09 mg/dL (0.55-1.02); MAGNESIUM 1.6 mg/dL (1.8-2.4); PHOSPHORUS, INORGANIC 5.3 mg/dL (2.5-4.9); POTASSIUM 4.2 mmol/L (3.5-5.1); PROTEIN, TOTAL 5.5 g/dL (6.4-8.2)
--- NOTE | 2024-10-21 07:36 | NUR ---
RECIEVED MORNING REPORT FROM NACHO BOLAND. PT LAYING IN BED ALSEEP COMFORTABLY WITH NO NEEDS AT THIS TIME CALL LIGHT WITHIN REACH.
[2024-10-21] MEDS ORDERED: MAGNESIUM CHLORIDE 64 MG TABCR PO ONE (08:15)
[2024-10-21] MEDS ORDERED: BUMETANIDE 1 MG TAB PO SCH ×2 (09:00→21:00)
--- NOTE | 2024-10-21 09:10 | NUR ---
THIS RN, DEANNA, NACHO, AND KRISTEL LEWIS IN ROOM. PICTURES TAKEN OF LEGS, PLACED INTO CHART. APPLIED HEEL PROTECTION BOOTS. ROLLED PT TO ASSESS BOTTOM. REDDNESS NOTED, BARRIER CREAM APPLIED. REPOSITIONED WITH PILLOWS. DISCUSSSED WITH PT THAT WE WILL REPOSITION Q2 HRS TO PREVENT PRESSURE INJURIES. PT IS COMPLIANT. FAMILY AT BEDSIDE AND EDUCATED. PT STATES SHE IS FEELING IN PAIN AT THE HIPS. REPOSITIONED AND DISCUSSED WITH ANTONETTE TO ORDER PRN TYLENOL. CALL LIGHT IN REACH.
--- NOTE | 2024-10-21 09:14 | NUR ---
Pictures of lower legs and right heel taken and measured by RN. Barrier cream applied to patient's bottom. Patient repositioned. Right hip and left leg floated. Float boots placed on both feet. Patient reported being in pain to RN. Refused breakfast but asked for chocolate ensure to drink.
[2024-10-21] MEDS ORDERED: ACETAMINOPHEN 325 MG TAB PO PRN (09:15)
[2024-10-21 11:06] LABS: HEMATOCRIT 23.9 % (35.0-50.0); HEMOGLOBIN 7.5 g/dL (12.0-18.0); MCH 31.4 (27-36); MCHC 31.5 g/dl (30-36); MCV 99.6 fl (81-99); PLATELET COUNT 225 K/uL (140-440); RDW 19.2 (10.5-15.0)
[2024-10-21 11:35] LABS: LYMPHOCYTES, MANUAL DIFF 6; MONOCYTES, MANUAL DIFF 3; NEUTROPHILS, MANUAL DIFF 91
[2024-10-21] MEDS ORDERED: PHARMACY RENAL DOSE ADJUSTMENT 1 DOSE MISC PO SCH (12:00)
--- NOTE | 2024-10-21 13:15 | NUR ---
PT RESTING IN BED WITH EYES OPEN WITH FAMILY MEMBERS AT BED SIDE. PT HAS NO CONCERNS AT THIS TIME. PT FAMILY ALSO HAS NO NEEDS.
--- NOTE | 2024-10-21 13:34 | NUR ---
Bed bath complete. Oral care performed and chapstick applied. Chin shaved. Right hip floated.
--- NOTE | 2024-10-21 13:46 | NUR ---
MED REC COMPLETE
--- NOTE | 2024-10-21 13:54 | NUR ---
UR CLINICAL REVIEW: 2 MN FOR VERSALUS-MEETS INPATIENT CRITERIA FOR ANEMIA MEDICARE INPT 10/20/24 @ 1516 NO AUTH REQUIRED PER MEDICARE GUIDELINES DISCHARGE TO HOME WITH FAMILY
--- NOTE | 2024-10-21 14:46 | NUR ---
PT ON BSC. 2-3PA TO THE BED. BRIEF APPLIED, PURWICK PLACED. FAMILY AT BEDSIDE. CALL LIGHT IN REACH. LEGS ELEVATED.
--- NOTE | 2024-10-21 15:00 | NUR ---
Met with Courtney. She states she lives at [facility] and wants to return. She has plans to go to her daughter's for Thanksgiving and wants turkey. She states she uses a wc and sometimes a walker. She needs partial assistance to dress. She is able to move herself in her wc by using her feet. She feeds herself. She denies any needs and plans on return tomorrow if possible.
--- NOTE | 2024-10-21 16:04 | NUR ---
PATIENT GIVEN 650MG OF TYLENOL FOR 7/10 PAIN "EVERYWHERE." WATER REFILLED.
--- NOTE | 2024-10-21 17:50 | NUR ---
PT LAYING IN BED COMFORTABLY WITH FAMILY AT BEDSIDE. RETRIEVED A WARM BLANKET FROM WARMER FOR PT. PT STATES SHE HAS NO OTHER NEEDS AT THIS TIME. FAMILY HAD QUESTIONS ABOUT UPDATES ON POC AND WAS INFORMED ON PT PROGRESS. PT AND FAMILY HAVE NO OTHER NEEDS AT THIS TIME CALL LIGHT WITHIN REACH.
[2024-10-21 18:19] LABS: MCH 31.6 (27-36); MCHC 32.3 g/dl (30-36); RBC 2.48 M/ul (4.3-5.7)
--- NOTE | 2024-10-21 18:19 | NUR ---
Patient was able to eat 25% of their dinner and was drinking an Ensure protein drink. They complained of being cold, a warm blanket was brought.
[2024-10-21 18:23] LABS: HEMATOCRIT 24.2 % (35.0-50.0); HEMOGLOBIN 7.8 g/dL (12.0-18.0); MCV 97.6 fl (81-99); PLATELET COUNT 249 K/uL (140-440); RDW 18.6 (10.5-15.0)
[2024-10-21 18:38] LABS: LYMPHOCYTES, MANUAL DIFF 9; MONOCYTES, MANUAL DIFF 4; NEUTROPHILS, MANUAL DIFF 87
--- NOTE | 2024-10-21 19:35 | NUR ---
REPORT RECEIVED FROM DAY SHIFT RN. PT LYING IN BED ALERT AND ORIENTED. ASSISTED PT TO REPOSITION. DENIES FURTHER NEEDS. WHITE BOARD UPDATED. CALL LIGHT IN REACH.
--- NOTE | 2024-10-21 20:31 | NUR ---
awake, alert and oriented, tle in place, no c/o sob or cp. cooperative with vitals, vacuum canister, tubing and purwick changed at this time. Pt aware of UA sample needed. IVANNA elevated w pillows, Turned and repositioned
[2024-10-21] MEDS ORDERED: BUMETANIDE 1 MG TAB PO ONE (20:45)
--- NOTE | 2024-10-21 20:53 | NUR ---
EVENING ASSESSMENT COMPLETE. SCHEDULED MEDS ADMIN PER EMAR. PT DENIES NAUSEA OR SOB. REPORTS BLE PAIN. TOO EARLY FOR PRN. ASSISTED PT TO REPOSITION WITH PILLOWS. PT REPORTS INCREASED COMFORT. EDEMA IN LOWER ABD TO ANKLES NOTED. NEW PUREWICK PLACED AFTER EZRA CARE. PT DENIES QUESTIONS OR CONCERNS. CALL LIGHT IN REACH. BED ALARM FOR SAFETY.
--- NOTE | 2024-10-21 21:31 | NUR ---
Repositioned in bed, took Bumex, pure wick in place, Dr Birch in room
--- NOTE | 2024-10-21 21:32 | NUR ---
IN ROOM WITH RN DEMETRIUS TO RECHECK BP/HR BEFORE ADMINISTERING ORDERED BUMEX-SEE EMAR. VS REMAIN STABLE, DR JACOBS IN ROOM ROUNDING ON pt.
--- NOTE | 2024-10-21 22:49 | EKG ---
[facility] [address] [place] [address] Signed Accelerated Junctional rhythm Nonspecific T wave abnormality Abnormal ECG When compared with ECG of 08-SEP-2024 16:08, Junctional rhythm has replaced Sinus rhythm Nonspecific T wave abnormality, worse in Inferior leads Nonspecific T wave abnormality now evident in Anterior leads Confirmed by Thomas Jacobs MD () on 10/21/2024 10:49:32 PM Electronically Signed By: THOMAS JACOBS MD 10/21/24 2249 PATIENT NAME: YAAKOV LOGAN Electrocardiogram DATE OF : 35 PHYSICIAN: THOMAS JACOBS MD REPORT #: [id number] REPORT IS CONFIDENTIAL AND NOT TO BE RELEASED WITHOUT AUTHORIZATION
--- NOTE | 2024-10-21 23:24 | NUR ---
IN TO CHECK FOR VOID TO SEND UA. PT INCONTINENT OF LARGE AMOUNT OF URINE AROUND PUREWICK. NEW PUREWICK PLACED AFTER EZRA CARE. 2PA TO REPOSITION IN BED. BLE ELEVATED ON PILLOWS. PT REPORTS 7/10 BLE PAIN. PRN FOR PAIN ADMIN PER EMAR. NO FURTHER NEEDS. BED ALARM IN PLACE. CALL LIGHT IN REACH.
[2024-10-22] VITALS (9 sets, daily range): BP systolic 137–168; BP diastolic 63–76
--- NOTE | 2024-10-22 01:05 | NUR ---
IN ROOM TO ASSESS FOR URINE TO SEND FOR UA. NO URINE OUTPUT VIA PUREWICK. PATIENT RESTING IN BED ON BACK WITH EYES CLOSED. RESPIRATIONS EVEN AND UNLABORED. NO NEEDS IDENTIFIED AT THIS TIME. CALL LIGHT IN REACH.
--- NOTE | 2024-10-22 02:09 | NUR ---
IN ROOM TO ASSESS FOR URINE TO SEND FOR UA. NO URINE COLLECTED VIA PUREWICK. PUREWICK PLACEMENT VERIFIED, SUCTION VERIFIED, BRIEF CLEAN/DRY. BLADDER SCAN COMPLETED, 155ML IN BLADDER. PATIENT EDUCATION PROVIDED ON URINATING WITH THE PUREWICK AND PATIENT VERBALIZED UNDERSTANDING. PATIENT DENIED NEED TO VOID AT THIS TIME. PATIENT DENIED BLADDER PAIN/PRESSURE. VITALS ASSESSED. ASSESSMENT COMPLETED. PATIENT DENIES ADDITIONAL NEEDS AT THIS TIME. CALL LIGHT IN REACH.
--- NOTE | 2024-10-22 04:15 | NUR ---
IN ROOM TO ROUND ON PATIENT. PATIENT RESTING ON BACK WITH EYES CLOSED. RESPIRATIONS EVEN AND UNLABORED. NO URINE OUTPUT VIA PUREWICK. NO OTHER NEEDS IDENTIFIED AT THIS TIME. CALL LIGHT IN REACH. BED ALARM ACTIVE.
[2024-10-22 05:29] LABS: BASOPHILS 0.2 % (0-2); EOSINOPHILS 0.5 % (0-6); HEMATOCRIT 22.1 % (35.0-50.0); HEMOGLOBIN 7.1 g/dL (12.0-18.0); LYMPHOCYTES 9.1 % (24-44); MCH 31.6 (27-36); MCHC 32.1 g/dl (30-36); MCV 98.6 fl (81-99); MONOCYTES 9.4 % (0-12); NEUTROPHILS 80.8 % (39-80); PLATELET COUNT 222 K/uL (140-440); RBC 2.24 M/ul (4.3-5.7); RDW 19.5 (10.5-15.0)
--- NOTE | 2024-10-22 05:29 | NUR ---
LEFT LOWER LEG MEDIAL ULCER 4.3CM X1.6 CM, 2 O'CLOCK TO 11 O'CLOCK HAS FIRMLY ADHERENT YELLOW SLOUGH BASE APPEARS PINK, VIABLE EDGES. LEFT LOWER LEG MEDIAL BLISTER, INTACT. LEFT LOWER MEDIAL SUPERIOR LEG ULCER, 1CM X1 CM, PINK BASE, VIABLE EDGES. LEFT LOWER LEG LATERIAL ULCER 1.9CM X 1.6 CM, MACERATED PERIWOUND, 7 O'CLOCK TO 11 O'CLOCK FIRMLY ADHERENT YELLOW SLOUGH. BASE APPEARS PINK. LEFT HEEL FISSURES, PINK BASES, VIABLE EDGES. RIGHT LOWER LEG MEDIAL ULCER, 4CM X1 CM, FIRMLY ADHERED YELLOW SLOUGH 10 O'CLOCK TO 3 O'CLOCK, BASE PINK WITH 0.5CM DIAMETER DARK RED AREA IN THE CENTER. PERIWOUND RED, FLAKING SKIN. EDGES VIABLE. REDNESS NOTED ON BLE POSTERIOR LEGS, OPEN TO AIR. LOWER LEGS CLEANED WITH SOAP AND WATER. CAVILON PLACED ON ALL ULCER PERIWOUND AREAS, IODOSORB, ALLEVYN. CAVILON PLACED ON BLISTER PERIWOUND AND COVERED WITH ALLEVYN. POSTERIOR LEG REDNESS, ELEVATE WITH PILLOWS. LEFT HEEL FISSURES AND BLE FLAKY SKIN MOISTURIZED WITH HAND LOTION AND ALLEVYN PLACED OF LEFT HEEL. MOISTURIZE FLAKY AREAS DAILY AND LEAVE OPEN TO AIR. CHANGE DRESSINGS EVERY 3 DAYS AND PRN.
[2024-10-22 05:55] LABS: ALBUMIN 1.9 g/dL (3.4-5.0); ALBUMIN/GLOBULIN RATIO 0.58 (1.1-2.4); ANION GAP 21.9 (7-21); BILIRUBIN, TOTAL 0.5 ng/dL (0.2-1.0); BUN/CREATININE RATIO 21.77 (6.0-28.6); CALCIUM 7.5 mg/dL (8.5-10.1); CREATININE, SERUM 5.97 mg/dL (0.55-1.02); MAGNESIUM 1.6 mg/dL (1.8-2.4); POTASSIUM 3.9 mmol/L (3.5-5.1); PROTEIN, TOTAL 5.2 g/dL (6.4-8.2)
--- NOTE | 2024-10-22 06:03 | NUR ---
IN ROOM TO ADMINISTER MEDICATIONS, SEE E-MAR. PATIENT REPORTING 7/10 PAIN IN BILATERAL LOWER EXTREMEITIES. PATIENT TOLERATED ORAL MEDICATION WELL. PATIENT DENIES ADDITIONAL NEEDS AT THIS TIME. CALL LIGHT IN REACH. BED ALARM ACTIVE.
[2024-10-22 06:04] LABS: BILIRUBIN, URINE NEGATIVE (negative); BLOOD/HGB, URINE TRACE-I (Negative); KETONE, URINE NEGATIVE (Negative); LEUK ESTERASE, URINE NEGATIVE (negative); NITRITE, URINE NEGATIVE (negative)
[2024-10-22 06:13] LABS: BACTERIA, URINE NONE SEEN /hpf (negative); CASTS, URINE NONE SEEN \\lpf; CRYSTALS, URINE NONE SEEN (0-1+); EPITHELIAL CELLS, URINE SQUAMOUS 2+ /lpf (0-1+); RED BLOOD CELLS, URINE 0-1 /hpf (0-5)
[2024-10-22 06:14] LABS: COLLECTION TYPE, URINE CLEAN CATCH; REFLEX CULTURE, URINE No (No)
--- NOTE | 2024-10-22 07:11 | NUR ---
Pt report received from NACHO Shipley and NACHO Ramachandran. Pt is resting supine in bed with eyes closed, breathing regular, even, and non-labored, but awakens easily to voice. Pt is [place]. Pt denies needs at this time. Side rails up x4, call light in reach. White board updated.
[2024-10-22 07:45] LABS: IS CROSSMATCH COMPATIBLE
[2024-10-22] MEDS ORDERED: MAGNESIUM CHLORIDE 64 MG TABCR PO ONE (07:45)
--- NOTE | 2024-10-22 07:55 | NUR ---
Dr. Birch in with pt. Pt states she feels she is at her baseline.
[2024-10-22] MEDS ORDERED: PANTOPRAZOLE SODIUM 40 MG/10 ML VIAL IV SCH (09:00)
--- NOTE | 2024-10-22 09:15 | NUR ---
PATIENT IN BED AT THIS TIME. NURSERY HELPER FED PATIENT HER BREAKFAST. NURSERY HELPER NOTICED THAT PATIENTS IV SITE WAS LEAKING, NURSERY HELPER LET RN KNOW IMMEDIATELY, SILVER SPRAY WORKER CAME INTO ROOM TO FIX IV. CALL LIGHT WITHIN REACH, NO FURTHER NEEDS AT THIS TIME.
--- NOTE | 2024-10-22 11:00 | NUR ---
In with pt for assessment during blood product administration. Pt is A&O, family at bedside. Noted that the IV in LAC is leaking around the catheter. Attempted to flush and "save" this IV and the IV in the RAC without success. IV's DC'd, pressure bandages applied. 2 unsuccessful IV insertion attempts made by this RN (one in RFA, one in LW). 20g IV successfully inserted into ROBERT by RN Aster Serna Good blood return, flushes well, secured. Blood products administering. Pt position adjusted in bed, floated to her left side, BLE elevated on pillows. Side rails up x4, call light in reach.
[2024-10-22] MEDS ORDERED: FUROSEMIDE 100 MG/10 ML VIAL IV ONE (11:30)
--- NOTE | 2024-10-22 11:38 | NUR ---
PATIENT LYING IN BED, RESTING. DAUGHTER AND SON IN LAW PRESENT AND WANTING TO DISCUSS HOSPICE. SHE CURRENTLY WORKS WITH [facility]. PATIENT IS CURRENTLY GETTING BLOOD PRODUCTS AND WILL HAVE LABS RECHECKED AFTER. DAUGHTER STATES SHE WOULD LIKE REFERRAL SENT TO [facility] SO SHE CAN HAVE A LONGER DISCUSSION WITH THEM REGARDING TRANSITION TO HOSPICE CARE BECAUSE SHE FEELS PATIENT IS CONTINUING TO DECLINE AND SHE FEELS HOSPICE IS A GOOD OPTION. DISCUSSED HOSPICE CARE AND WHAT THAT ENTAILS. QUESTIONS ANSWERED. DID LET [facility]MER AT [facility] KNOW FAMILY IS CONSIDERING HOSPICE AND INFORMATION IS BEING SENT TO [facility]. CLINICALS FAXED AT THIS TIME.
--- NOTE | 2024-10-22 11:56 | NUR ---
Pt transfusion of 1 unit of PRBC is complete, VSS. Pt has no complaints at this time aside from her legs hurting. IV site is patent, good return, no redness, swelling, leaking. Family at bedside. Side rails up x4. Call light in reach.
[2024-10-22 13:20] LABS: BASOPHILS 0.3 % (0-2); EOSINOPHILS 0.4 % (0-6); HEMATOCRIT 27.7 % (35.0-50.0); LYMPHOCYTES 7.5 % (24-44); MCH 31.3 (27-36); MCHC 32.6 g/dl (30-36); MONOCYTES 7.1 % (0-12); NEUTROPHILS 84.7 % (39-80); PLATELET COUNT 193 K/uL (140-440); RBC 2.89 M/ul (4.3-5.7); RDW 17.3 (10.5-15.0)
[2024-10-22] MEDS ORDERED: PROTONIX40 MG PO (14:25)
[2024-10-22] MEDS ORDERED: ARTHRITIS PAIN650 M2 PO (14:25)
--- NOTE | 2024-10-22 14:38 | NUR ---
ORDERS, NOTES FAXED TO [facility] AND [facility].
== END 2024-10-22 14:00 | DRG 291 ==
LOC: ED 09:35 → MS 15:47 → ED 15:47 → MS 15:53
PROVIDERS: Emergency Medicine; ADMIT Family Medicine; ATTEND Family Medicine
PROC: 30233N1 Transfusion of Nonautologous Red Blood Cells into Peripheral Vein, Percutaneous Approach (ICD-10-PCS; principal; 2024-10-20)
DX: I13.0 Hypertensive heart and chronic kidney disease with heart failure and stage 1 through stage 4 chronic kidney disease, or unspecified chronic kidney disease (principal); I50.33 Acute on chronic diastolic (congestive) heart failure; N18.5 Chronic kidney disease, stage 5; Z66 Do not resuscitate; Z87.891 Personal history of nicotine dependence; Z87.442 Personal history of urinary calculi; M06.9 Rheumatoid arthritis, unspecified; Z90.89 Acquired absence of other organs; E87.5 Hyperkalemia; E83.42 Hypomagnesemia; D63.1 Anemia in chronic kidney disease; Z88.1 Allergy status to other antibiotic agents
CPT/HCPCS: 36415; 36430; 51702; 51798; 71045; 80053; 81001; 83735; 83880; 84100; 84484; 85025; 85060; 86850; 86900; 86901; 86922; 93005; 93010; 94640; 99285-25; A9270; J1940; J2470; P9016

== ENCOUNTER 2024-11-24 13:34 | Emergency (ER) | payer MEDICARE, OTHER ==
[~2024-11-24] VITALS: Ht 152.4 cm; Wt 66.7 kg
[~2024-11-24 13:34] MED LIST changes: +ATORVASTATIN CA20 MG PO; +BUMETANIDE2 MG PO; +CEPHALEXIN125 MG/5 M PO; +ISOSORBIDE MONO30 MG PO; +LABETALOL HCL100 MG PO; +LEVOTHYROXINE50 MCG PO; +NIFEDIPINE ER30 M1 PO; +PROTONIX40 MG PO
[2024-11-24 14:51] LABS: BASOPHILS 0.7 % (0-2); EOSINOPHILS 0.8 % (0-6); HEMATOCRIT 26.6 % (35.0-50.0); HEMOGLOBIN 8.4 g/dL (12.0-18.0); LYMPHOCYTES 17.9 % (24-44); MCH 30.9 (27-36); MCHC 31.7 g/dl (30-36); MCV 97.3 fl (81-99); NEUTROPHILS 73.6 % (39-80); PLATELET COUNT 234 K/uL (140-440); RBC 2.73 M/ul (4.3-5.7); RDW 17.7 (10.5-15.0)
[2024-11-24 15:07] LABS: ALBUMIN 1.9 g/dL (3.4-5.0); ALBUMIN/GLOBULIN RATIO 0.41 (1.1-2.4); ANION GAP 16.5 (7-21); BILIRUBIN, TOTAL 0.5 ng/dL (0.2-1.0); BUN/CREATININE RATIO 12.91 (6.0-28.6); CALCIUM 8.4 mg/dL (8.5-10.1); CREATININE, SERUM 5.73 mg/dL (0.55-1.02); POTASSIUM 4.5 mmol/L (3.5-5.1); PROTEIN, TOTAL 6.5 g/dL (6.4-8.2)
[2024-11-24 16:32] VITALS: BP 177/92
== END 2024-11-24 16:20 | disposition home or self-care (01) ==
LOC: ED 13:34
PROVIDERS: Emergency Medicine
DX: R60.9 Edema, unspecified (principal); I12.9 Hypertensive chronic kidney disease with stage 1 through stage 4 chronic kidney disease, or unspecified chronic kidney disease; N18.9 Chronic kidney disease, unspecified; D64.9 Anemia, unspecified; Z87.891 Personal history of nicotine dependence; Z66 Do not resuscitate; Z88.1 Allergy status to other antibiotic agents; Z79.890 Hormone replacement therapy; Z79.899 Other long term (current) drug therapy
CPT/HCPCS: 36415; 80053; 85025; 99283

== ENCOUNTER 2024-12-07 19:15 | Emergency (ER) | payer MEDICARE, OTHER ==
[~2024-12-07] VITALS: Ht 152.4 cm; Wt 83.0 kg
--- OUTSIDE RECORDS SUMMARY | 2024-12-07 19:22 | XMS ---
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 E.Cindy. VISIT COUNT (12 MO.) [address] [place] [address] Afshan Thompson (Chidi Murillo) TOTAL 6 NOTE: Visits indicate total known visits. ED/UCC VISIT TRACKING (12 MO.) 12/07/2024 19:16 MARITA Posada TYPE: Emergency COMPLAINT: - SHORTNESS OF BREATH 11/24/2024 13:35 [facility] TYPE: Emergency COMPLAINT: - LT ARM SWELLING DIAGNOSES: - Allergy status to other antibiotic agents - Anemia, unspecified - Chronic kidney disease, unspecified - Do not resuscitate - Edema, unspecified - Hormone replacement therapy - Hypertensive chronic kidney disease with stage 1 through stage 4 chronic kidney disease, or unspecified chronic kidney disease - Other wind up operator (current) drug therapy - Personal history of nicotine dependence [facility] DIAGNOSES: - Dysarthria and anarthria - Encephalopathy, unspecified - Other disorders of phosphorus metabolism - Urinary tract infection, site not specified - Weakness 09/24/2024 18:01 [facility] Chidi [place]HEVERRIA (Chidi Murillo) TYPE: Emergency DIAGNOSES: - Hematuria, unspecified - [...] or end stage renal disease - Other longterm (current) drug therapy - Personal history of nicotine dependence - Urinary tract infection, site not specified - Weakness INPATIENT VISIT TRACKING (12 MO.) 10/20/2024 15:53 MARITA Galeano [facility] TYPE: Medical Surgical COMPLAINT: - ANEMIA DIAGNOSES: - Acquired absence of other organs - Acquired absence of other organs - Acute on chronic diastolic (congestive) heart failure - Allergy status to other antibiotic agents - Allergy status to other antibiotic agents - Anemia in chronic kidney disease - Anemia in chronic kidney disease - Chronic diastolic (congestive) heart failure - Chronic kidney disease, stage 5 - Chronic kidney disease, stage 5 - Do not resuscitate - Do not resuscitate - Hyperkalemia - Hyperkalemia - Hypertensive heart and chronic kidney disease with heart failure and stage 1 through stage 4 chronic kidney disease, or unspecified chronic kidney disease - Hypomagnesemia - Hypomagnesemia - Personal history of nicotine dependence - Personal history of nicotine dependence - Personal history of urinary calculi - Personal history of urinary calculi - Rheumatoid arthritis, unspecified - Rheumatoid arthritis, unspecified [facility] Medical [facility] DIAGNOSES: [...] - Nonrheumatic aortic (valve) stenosis - Other wind up operator (current) drug therapy - Other longterm (current) drug therapy - Other wind up operator (current) drug therapy - Other specified postprocedural [...] unspecified site - Unspecified osteoarthritis, unspecified site [email or web address]
[2024-12-07] MEDS ORDERED: METOLAZONE2.5 MG PO (19:27)
[2024-12-07] MEDS ORDERED: OXYCODONE-ACET1 EAC1 PO (19:28)
[2024-12-07] MEDS ORDERED: REMERON15 MG PO (19:57)
[2024-12-07 23:38] VITALS: BP 168/96
== END 2024-12-07 23:59 | disposition home or self-care (01) ==
LOC: ED 19:15
DX: I13.2 Hypertensive heart and chronic kidney disease with heart failure and with stage 5 chronic kidney disease, or end stage renal disease (principal); N18.6 End stage renal disease; I50.9 Heart failure, unspecified; Z87.891 Personal history of nicotine dependence; Z88.1 Allergy status to other antibiotic agents; Z79.890 Hormone replacement therapy; Z79.899 Other long term (current) drug therapy
CPT/HCPCS: 99283